=== PATIENT | male | born 1960 | race Caucasian/White ===

== ENCOUNTER → 2024-07-06 | Outpatient (CLI) | payer BC ==
--- NOTE | 2024-07-06 10:49 | XR ---
EXAMINATION TYPE: XR knee complete 3 views RT DATE OF EXAM: 07/06/2024 COMPARISON: NONE CLINICAL INDICATION: Male, 63 years old with history of [id number] RT KNEE PAIN; TECHNIQUE: 3 views FINDINGS: [id number] knee joint effusion. Some possible irregularity of the subchondral bone a long the central aspect of the medial femoral condyle articular surface on the oblique view. There is degenerative spurring in both medial and lateral compartments. Otherwise, no acute fracture, subluxa tion, dislocation. IMPRESSION: 1. Subtle irregularity of the subchondral bone along the central aspect of the medial femoral condyle articular surface on the oblique view. Findings may be projectional. Given the small to moderate kne e joint effusion, if there is concern for osteochondral injury or other internal derangement, MRI can be performed. 2. Mild tricompartmental osteoarthrosis. [facility], , 07/06/2024 10:47 AM
== END | disposition home or self-care (01) ==
LOC: RADXRYALE 10:08
PROVIDERS: ATTEND Physician Assistant
DX: M17.11 Unilateral primary osteoarthritis, right knee (principal); M25.461 Effusion, right knee